=== PATIENT | male | born 1975 | race Caucasian/White ===

== ENCOUNTER 2017-08-25 07:48 | Day surgery (SDC) | payer MEDICARE ==
[2017-08-25] MEDS: NS 1,000 ML IV (08:39)
[2017-08-25 08:57] LABS: BEDSIDE GLUCOSE 120 MG/DL (70-105)
[2017-08-25] MEDS ORDERED: LIDOCAINE 2% INJ 100 MG/5 ML SDV (FOR ANES.) As Ordered (09:29)
[2017-08-25] MEDS ORDERED: PROPOFOL 200 MG/20 ML VIAL As Ordered (09:29)
== END 2017-08-25 10:07 | disposition home or self-care (01) ==
LOC: M OPP 07:48
DX: Z12.11 Encounter for screening for malignant neoplasm of colon (principal); K64.0 First degree hemorrhoids; E11.9 Type 2 diabetes mellitus without complications; G47.30 Sleep apnea, unspecified; I10 Essential (primary) hypertension; E78.5 Hyperlipidemia, unspecified; F41.9 Anxiety disorder, unspecified; F17.210 Nicotine dependence, cigarettes, uncomplicated; G43.909 Migraine, unspecified, not intractable, without status migrainosus; Z79.899 Other long term (current) drug therapy; M13.812 Other specified arthritis, left shoulder; Z87.39 Personal history of other diseases of the musculoskeletal system and connective tissue; Z96.9 Presence of functional implant, unspecified
CPT/HCPCS: G0121